=== PATIENT | male | born 1995 | race Caucasian/White ===

== ENCOUNTER 2021-02-20 16:35 | Emergency (ER) | payer OTHER ==
[~2021-02-20] VITALS: Ht 180 cm; Wt 68.0 kg
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
[2021-02-20] MEDS ORDERED: TETANUS,DIPTH,PERTUSS P/F (BOOSTRIX) 0.5 ML VIAL IM ONE (17:15)
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
[2021-02-20] MEDS ORDERED: AMOX500C2 PO (17:45)
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
[2021-02-20 17:48] VITALS: BP 119/72
== END 2021-02-20 17:48 | disposition home or self-care (01) ==
LOC: ER 16:37
DX: S00.531A Contusion of lip, initial encounter (principal); S00.11XA Contusion of right eyelid and periocular area, initial encounter; R40.2410 Glasgow coma scale score 13-15, unspecified time; Z23 Encounter for immunization; V89.2XXA Person injured in unspecified motor-vehicle accident, traffic, initial encounter
CPT/HCPCS: 70450; 70486; 71045; 72125; 73030; 90715

== ENCOUNTER → 2021-02-27 | Outpatient (CLI) | payer OTHER ==
[~2021-02-27] MED LIST: AMOX500C2 PO
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
== END ==
LOC: RAD 13:30
PROVIDERS: ATTEND Pediatrics
DX: S06.0X1D Concussion with loss of consciousness of 30 minutes or less, subsequent encounter (principal); V89.2XXD Person injured in unspecified motor-vehicle accident, traffic, subsequent encounter
CPT/HCPCS: 70450

== ENCOUNTER → 2021-03-30 | Outpatient (CLI) | payer OTHER ==
[~2021-03-30] MED LIST changes: +GADOTERATE 0.5 MMOL/ML (CLARISCAN) 15 ML VIAL IV ONE
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
== END ==
LOC: RAD 14:45
PROVIDERS: ATTEND Pediatrics
DX: S06.0X1D Concussion with loss of consciousness of 30 minutes or less, subsequent encounter (principal); V89.2XXD Person injured in unspecified motor-vehicle accident, traffic, subsequent encounter
CPT/HCPCS: 70553